=== PATIENT | female | born 1990 | race Hispanic/Latino ===

== ENCOUNTER 2017-09-08 00:05 | Emergency (ER) | payer OTHER ==
[~2017-09-08] VITALS: Ht 157.5 cm; Wt 63.8 kg
[~2017-09-08 00:05] MED LIST: Motrin PO; NOHOMEMEDS
[2017-09-08] MEDS ORDERED: MOTRIN800 MG PO (02:33)
[2017-09-08] MEDS ORDERED: AMOXICILLIN500 MG PO (02:33)
[2017-09-08] MEDS ORDERED: ZOFRAN ODT4 MG PO (02:33)
[2017-09-08 03:01] VITALS: BP 107/63
== END 2017-09-08 03:06 | disposition home or self-care (01) ==
LOC: EME 00:05
DX: S09.90XA Unspecified injury of head, initial encounter (principal); S09.22XA Traumatic rupture of left ear drum, initial encounter; W18.2XXA Fall in (into) shower or empty bathtub, initial encounter; Y93.E1 Activity, personal bathing and showering
CPT/HCPCS: 70450; 99281; 99284